=== PATIENT | female | born 1945 | race Caucasian/White ===

== ENCOUNTER → 2020-06-24 | Day surgery (SDC) | payer MEDICARE, OTHER ==
[~2020-06-24] MED LIST: Ketamine 200 MG/20 ML MDV IV ONE; Lactated Ringers 1,000 ML IV SCH; Propofol 200 MG/20 ML SDV IV ONE
[2020-06-24 10:05] VITALS: PULSE 67
[2020-06-24 10:06] VITALS: BP 117/56
--- NOTE | 2020-06-24 11:57 | OR ---
DATE OF OPERATION: 06/24/2020 PREOPERATIVE DIAGNOSIS: HEME-POSITIVE STOOL. POSTOPERATIVE DIAGNOSIS: HEME-POSITIVE STOOL. SURGEON: Adeel Fonseca MD PROCEDURE: FULL-LENGTH COLONOSCOPY WITH FORCEPS POLYP REMOVAL X5. ANESTHESIA: MAC. COMPLICATIONS: None. SPECIMEN: Four small sessile polyps and 1 villous adenoma, approximately 0.5 cm. FINDINGS: 1. Full-length colonoscopy. 2. Huro-ho-gmrbmvne distal sigmoid diverticulosis. 3. Small sessile polyps, less than 0.5 cm x4. 4. Villous adenoma, distal sigmoid colon. RECOMMENDATIONS: Followup colonoscopy in 5 years pending path report. INDICATIONS: The patient was in for routine physical, was found to have heme- positive stool. It had been 8 years since her last colonoscopy. We recommended a diagnostic procedure. DESCRIPTION OF PROCEDURE: The patient was prepped and draped, placed in the left lateral decubitus position. A lubricated Olympus colonoscope was inserted and with relative ease advanced to the cecum. Direct visualization of the ileocecal valve and appendiceal orifice was accomplished. The bowel prep was fine. Upon withdrawal of the scope, the cecum and ascending colon appeared benign. Just past the hepatic flexure, the patient had a small sessile polyp approximately 3 to 4 mm, removed in its entirety with 2 cold forceps biopsies. There was a second sessile polyp in the transverse colon in its midportion, also removed with a forceps without difficulty. The rest of the transverse and descending colon were benign. The proximal sigmoid colon was unremarkable. In the zhv-yx-eqgpph portion, the patient had fmpl-vl-rmirvied diverticular disease without inflammatory changes. At around 30 cm, the patient had a villous adenoma along the haustral fold of approximately 5 to 6 mm in length. We removed it with 3 cold forceps in its entirety. There were 2 small likely hyperplastic polyps in the near vicinity, also removed with the forceps. The rest of the sigmoid and rectosigmoid area were benign. Rectal vault appeared benign. Retroflexion showed no perianal lesions. Air was suctioned, the scope removed without complication. ASUNCION/LENARD /[id number]
== END ==
LOC: CC.SDS 07:54
PROVIDERS: ATTEND Family Medicine
DX: D12.3 Benign neoplasm of transverse colon (principal); D12.5 Benign neoplasm of sigmoid colon; K57.30 Diverticulosis of large intestine without perforation or abscess without bleeding; E78.5 Hyperlipidemia, unspecified; M81.0 Age-related osteoporosis without current pathological fracture; I10 Essential (primary) hypertension; E03.9 Hypothyroidism, unspecified; M85.80 Other specified disorders of bone density and structure, unspecified site; E11.9 Type 2 diabetes mellitus without complications; Z79.899 Other long term (current) drug therapy; Z79.82 Long term (current) use of aspirin; Z79.890 Hormone replacement therapy; Z79.4 Long term (current) use of insulin
CPT/HCPCS: 45380; J2704; J7120; 00811

== ENCOUNTER 2025-04-09 22:35 | Emergency (ER) | payer MEDICARE, OTHER ==
[2025-04-09 22:41] VITALS: BP 146/71; PULSE 73
[2025-04-09] MEDS: Bacitracin Oint 1 GM U/D Packet TOP ONE (23:01)
[2025-04-09] MEDS: Diphtheria,Pertussis(Acell),Tetanus Vaccine 0.5 ML Syringe IM ONE (23:01)
== END 2025-04-09 23:18 | disposition home or self-care (01) ==
LOC: CC.ED 22:35
DX: S01.01XA Laceration without foreign body of scalp, initial encounter (principal); Z23 Encounter for immunization; E78.00 Pure hypercholesterolemia, unspecified; I10 Essential (primary) hypertension; E11.9 Type 2 diabetes mellitus without complications; E03.9 Hypothyroidism, unspecified; Z79.890 Hormone replacement therapy; Z79.82 Long term (current) use of aspirin; Z79.899 Other long term (current) drug therapy; W22.8XXA Striking against or struck by other objects, initial encounter; Y93.89 Activity, other specified
CPT/HCPCS: 12001; 90471; 90715; 99282-25

== ENCOUNTER 2025-06-25 07:07 | Day surgery (SDC) | payer MEDICARE, OTHER ==
[2025-06-25] MEDS: Lactated Ringers 1,000 ML IV SCH (07:39)
[2025-06-25] MEDS ORDERED: fentaNYL 50 MCG/ML SDV ONE (08:05)
[2025-06-25] MEDS ORDERED: Ketamine 200 MG/20 ML MDV ONE (08:05)
[2025-06-25] MEDS ORDERED: Propofol 200 MG/20 ML SDV ONE (08:05)
[2025-06-25 09:14] VITALS: BP 134/62; PULSE 54
== END 2025-06-25 09:15 | disposition home or self-care (01) ==
LOC: CC.SDS 07:07
PROVIDERS: ATTEND Family Medicine
DX: Z12.11 Encounter for screening for malignant neoplasm of colon (principal); K57.30 Diverticulosis of large intestine without perforation or abscess without bleeding; I10 Essential (primary) hypertension; E78.5 Hyperlipidemia, unspecified; E03.9 Hypothyroidism, unspecified; E11.9 Type 2 diabetes mellitus without complications; Z79.82 Long term (current) use of aspirin; Z79.899 Other long term (current) drug therapy; Z79.890 Hormone replacement therapy; Z86.0100 Personal history of colon polyps, unspecified
CPT/HCPCS: 82947; J2704; J3010; J3490; J7120